=== PATIENT | male | born 1990 ===

== ENCOUNTER 2016-10-11 12:32 | Inpatient (IN) | payer OTHER ==
[2016-10-11] MEDS ORDERED: Sodium Chloride 0.9% 1,000 ML IV ONE (13:38)
[2016-10-11] MEDS ORDERED: Sodium Chloride 0.9% 250 ML IV ONE (13:56)
[2016-10-11 14:02] LABS: BASO % 0.2 % (0.0-2.0); EOS % 0.2 % (0.0-4.0); HEMATOCRIT 32.5 % (35.0-51.0); LYMPH # 0.8 K/uL (1.0-4.3); LYMPH % 5.4 % (20.0-40.0); MEAN CELL VOLUME 83.9 fL (80.0-94.0); MEAN CORPUSCULAR HEMOGLOBIN 26.8 pg (27.0-31.0); MEAN CORPUSCULAR HGB CONC 31.9 g/dL (33.0-37.0); MONO # 0.9 K/uL (0.0-0.8); MONO % 6.2 % (0.0-10.0); PLATELET COUNT 270 K/uL (130-400); RED CELL DISTRIBUTION WIDTH 15.1 % (11.5-14.5); WHITE BLOOD COUNT 13.9 K/uL (4.8-10.8)
[2016-10-11 14:10] LABS: CHLORIDE 95 mmol/L (98-107); SODIUM 134 mmol/L (132-148)
[2016-10-11 14:11] LABS: INR 1.4; POTASSIUM 3.9 mmol/L (3.6-5.2)
[2016-10-11 14:12] LABS: GFR AFRICAN-AMERICAN > 60
[2016-10-11 14:13] LABS: ALB/GLOB RATIO 0.9 (1.0-2.1); ALKALINE PHOSPHATASE 115 U/L (38-126); ALT/SGPT 31 U/L (21-72); AST/SGOT 26 U/L (17-59); BILIRUBIN,TOTAL 0.7 mg/dL (0.2-1.3); BLOOD UREA NITROGEN 9 mg/dL (9-20); CARBON DIOXIDE 27 mmol/L (22-30); GLUCOSE,RANDOM 95 mg/dL (75-110); TOTAL PROTEIN 7.3 g/dL (6.3-8.3)
[2016-10-11 14:14] LABS: CALCIUM 8.6 mg/dl (8.6-10.4)
[2016-10-11 15:25] LABS: NEUTROPHIL 76 % (50-75); TOTAL CELLS COUNTED 100
[2016-10-11 15:34] LABS: RBC URINE 11 /hpf (0-3); URINE BILIRUBIN NEGATIVE (NEGATIVE); URINE BLOOD 1+ (NEGATIVE); URINE COLOR Yellow (YELLOW); URINE GLUCOSE (UA) NORMAL (Normal); URINE KETONE NEGATIVE (NEGATIVE); URINE LEUKOCYTE ESTERASE NEG Leu/uL (Negative); URINE PROTEIN 1+ mg/dL (NEGATIVE); WBC URINE 8 /hpf (0-5)
[2016-10-11] MEDS ORDERED: Iodixanol 320 MG/ML 100 ML BOTTLE IV ONE (16:18)
--- NOTE | 2016-10-11 17:20 | CT ---
PROCEDURE: CT Chest with contrast (Pulmonary Angiogram) HISTORY: LUQ pain, SOB, +DDimer, r/o PE COMPARISON: None available. TECHNIQUE: Contiguous helical/ transaxial sections were obtained of the chest in the pulmonary arterial phase of enhancement following intravenous injection of approximately 100 cc Visipaque 320. Coronal and sagittal reformatted images were created and reviewed. Intravenous contrast dose: Radiation dose: Total exam DLP = 430.19 mGy-cm. This CT exam was performed using one or more of the following dose reduction techniques: Automated exposure control, adjustment of the mA and/or kV according to patient size, and/or use of iterative reconstruction technique. FINDINGS: PULMONARY ARTERIES: Note that the examination is limited due to poor opacification of the pulmonary arteries. Streak artifact further degrades the exam. . No definitive filling defects seen within the pulmonary trunk, right and left main pulmonary arteries. The lobar an segmental branches exhibit a localized areas of diminished contrast enhancement likely due to aforementioned technical factors. However the possibility of small nonocclusive emboli cannot be excluded. . Poor opacifications/visualization of the subsegmental and distal branches. Pulmonary trunk measures approximately 3.1 cm. Rule out underlying pulmonary arterial hypertension. Small hiatal hernia. AORTA: . No evidence of aortic aneurysm. The ascending thoracic aorta measures approximately 2.74 cm. . Descending thoracic aorta measures approximately 2.5 cm. LUNGS: The there is a triangular-shaped opacity seen within the superior margin of the major fissure on the right side possibly representing small amount of loculated fluid. . Multiple varying sized rounded nodular opacities are seen scattered throughout the upper and lower lobes new. Findings are of uncertain etiology though of post infectious/inflammatory including septic emboli and some of the small opacities exhibit the central lucencies. A metastatic disease would be less likely in this age group but not completely excluded. In addition, there also appears to be mild atelectasis both posterior lower lung zones. . Question history of IVDA in this patient. ? Questionable tiny calcification along the pleural surface right lung base and or along the hepatic surface. Rule out on prior exposure to a granulomatous disease process. . PLEURAL SPACES: No pneuomothorax. HEART: Heart size upper limits of normal. . No significant pericardial effusion. LYMPH NODES: No significant adenopathy. BONES, CHEST WALL: Unremarkable. No fracture or destructive lesion OTHER FINDINGS: The spleen is enlarged and heterogeneous. The possibility of splenic infarcts and/or septic emboli within the splenic parenchyma cannot be excluded. IMPRESSION: Multiple rounded small to medium-sized nodular opacities scattered throughout the upper and lower lobes several of which now exhibits central lucency. Findings sound consistent with process ; rule out septic emboli. Is there history of IVDA in this patient? . . The possibility of metastatic disease would be less likely in this age group but not completely excluded. Small amount of fluid suspect small amount of fluid within the superior margin of the right major fissure. Evaluation for PE is quite limited due to poor opacification and streak and beam hardening artifact. The pulmonary trunk and right and left main are fairly well opacified however branches distal to the to the of distal branches of the right and left main pulmonary artery poorly delineated some of which exhibit areas of low attenuation possibly due to streak and beam hardening artifact however nonocclusive thrombi cannot be excluded. Marked splenomegaly which is heterogeneous in appearance. . The possibility of underlying infarct changes and or septic emboli a not excluded. Findings discussed with Dr. Moreland at approximately 5:05 p.m. with written down and read back verification
[2016-10-11] MEDS ORDERED: Cefepime IV 2 gm in Dextrose 2 GM/100 ML BAG IVPB STA (17:33)
--- NOTE | 2016-10-11 18:15 | C.PDOC ---
Time Seen by Provider: 10/11/16 13:31 Chief Complaint (Nursing): Shortness Of Breath History Per: Patient Onset/Duration Of Symptoms: Days (few) Current Symptoms Are (Timing): Still Present Severity: Moderate Associated Symptoms: Fever (subjective) Additional History Per: Prior Records Past Medical History Reviewed: Historical Data, Nursing Documentation, Vital Signs Vital Signs: Last Vital Signs Temp 100.9 F H 10/11/16 17:38 Pulse 117 H 10/11/16 17:38 Resp 16 10/11/16 17:38 BP 99/47 L 10/11/16 17:38 Pulse Ox 97 10/11/16 17:38 - Medical History PMH: No Chronic Diseases Surgical History: No Surg Hx Family History: States: Unknown Family Hx - Social History Hx Alcohol Use: No Hx Substance Use: Yes (IVDU Heroin) - Immunization History Hx Influenza Vaccination: No Review Of Systems Except As Marked, All Systems Reviewed And Found Negative. Constitutional: Positive for: Malaise Cardiovascular: Negative for: Chest Pain Respiratory: Positive for: Shortness of Breath. Negative for: Hemoptysis Gastrointestinal: Positive for: Abdominal Pain (LUQ). Negative for: Vomiting Genitourinary: Negative for: Dysuria, Hematuria Musculoskeletal: Positive for: Other (Right upper thigh pain). Negative for: Neck Pain, Back Pain Skin: Negative for: Rash Neurological: Negative for: Weakness, Numbness, Seizures, Altered Mental Status , Headache Physical Exam - Physical Exam Appears: Non-toxic, No Acute Distress Skin: Normal Color, Warm, Dry, No Rash Head: Atraumatic, Normacephalic Eye(s): bilateral: PERRL, EOMI Neck: Normal ROM, Supple Cardiovascular: Rhythm Regular Respiratory: Normal Breath Sounds, No Accessory Muscle Use Gastrointestinal/Abdominal: Soft, Tenderness (LUQ) Back: No CVA Tenderness Male Genital: No Testicular Tenderness, No Testicular Swelling, No Scrotal Swelling Extremity: Normal ROM, Tenderness (mild right upper thight/groin), No Pedal Edema, No Calf Tenderness Extremity: Bilateral: Normal Color And Temperature Neurological/Psych: Oriented x3, Normal Cognition, Normal Motor, Normal Sensation ED Course And Treatment - Laboratory Results Result Diagrams: 10/11/16 13:50 10/11/16 13:50 Lab Interpretation: Abnormal Interpretation Of Abnormal: Bandemia O2 Sat by Pulse Oximetry: 97 Pulse Ox Interpretation: Normal - CT Scan/US CTA of chest Other Rad Studies (CT/US): Read By Radiologist, Radiology Report Reviewed CT/US Interpretation: IMPRESSION: Multiple rounded small to medium-sized nodular opacities scattered throughout the upper and lower lobes several of which now exhibits central lucency. Findings sound consistent with process ; rule out septic emboli. Is there history of IVDA in this patient? . . The possibility of metastatic disease would be less likely in this age group but not completely excluded. Small amount of fluid suspect small amount of fluid within the superior margin of the right major fissure. Evaluation for PE is quite limited due to poor opacification and streak and beam hardening artifact. The pulmonary trunk and right and left main are fairly well opacified however branches distal to the to the of distal branches of the right and left main pulmonary artery poorly delineated some of which exhibit areas of low attenuation possibly due to streak and beam hardening artifact however nonocclusive thrombi cannot be excluded. Marked splenomegaly which is heterogeneous in appearance. . The possibility of underlying infarct changes and or septic emboli a not excluded. - Physician Consult Information Physician Contacted: Chema Yañez (ICU) Outcome Of Conversation: He states pt can be safely admitted to medical floor. He also states anticoagulation is not necessary for septic emboli. Progress - Interventions Interventions:: Observation, Intravenous fluid - Medications Administered Intravenous: Other (Abx) - Data Reviewed Data Reviewed: Lab, Diagnostic imaging, Old records - Patient Status Patient status: Partially improved - Continuity of Care Discussed patient case with:: Patient, Family-HIPPA compliant, ED Nurse, On- call PMD-pt unassigned Discussed pt. case with work and family life consultant/specialty: Pulmonary/Crit. Care - Patient Plan Patient Plan: Admission, Telemetry Disposition Discussed With : Roldan Giraldo Comment: He accepted pt on hospitalist service. Doctor Will See Patient In The: Hospital Counseled Patient/Family Regarding: Studies Performed, Diagnosis - Disposition Disposition: HOSPITALIZED Disposition Time: 18:18 Condition: FAIR - Clinical Impression Clinical Impression: Septic embolism
[2016-10-11] MEDS ORDERED: Piperacillin/Tazobact 3.375 GM in Sodium Chloride 100 ML IVPB SCH (19:45)
--- NOTE | 2016-10-11 19:53 | CP.PCM.HP ---
<Salinas Alva - Last Filed: 10/11/16 20:06> History of Present Illness - History of Present Illness History of Present Illness: CC: "Stomach pain, fevers, diarrhea, shortness of breath, night sweats" HPI: Pt is a 26 year old male with a PMHx of IV heroin abuse who presents to the ED with complaints of on and off fevers, mid epigastric abdominal pain, diarrhea 3x/day, night sweats, and chills for a duration of one week. Pt reports that he last used heroin 3 days ago via injection. He reports that prior to using 3 days ago, he has not used heroin for 2 months. He reports that he is in an IOP program. Pt describes his abdominal pain as constant and sharp. He reports that the all the symptoms began suddenly. Pt denies nausea, vomiting , chest pain. PMHx: IV heroin abuse Home medications: none reported Allergies: NKDA Surgical Hx: none Social Hx: 2 cigarettes/day, denies alcohol use, 2 year hx of IV heroin abuse Family Hx: Cancer (aunt) Present on Admission - Present on Admission Any Indicators Present on Admission: No Review of Systems - Constitutional Constitutional: Chills, Fever - EENT Eyes: absent: Blurred Vision, Change in Vision Ears: absent: Dizziness Nose/Mouth/Throat: absent: Epistaxis, Nasal Congestion - Cardiovascular Cardiovascular: Dyspnea. absent: Chest Pain, Edema - Respiratory Respiratory: Dyspnea. absent: Cough - Gastrointestinal Gastrointestinal: Abdominal Pain, Diarrhea - Genitourinary Genitourinary: absent: Change in Urinary Stream, Difficulty Urinating - Musculoskeletal Musculoskeletal: absent: Atrophy, Back Pain - Neurological Neurological: Numbness. absent: Dizziness, Headaches Additional comments: Numbness on anterior aspect of left monahan - Psychiatric Psychiatric: Anxiety - Endocrine Endocrine: Excessive Sweating. absent: Palpitations Past Patient History - Infectious Disease Hx of Infectious Diseases: None - Past Social History Smoking Status: Light Smoker < 10 Cigarettes Daily - PSYCHIATRIC Hx Substance Use: Yes (IVDU Heroin) Meds Allergies/Adverse Reactions: Allergies Allergy/AdvReac Type Severity Reaction Status Date / Time No Known Allergies Allergy Verified 10/11/16 12:39 Physical Exam - Constitutional Appears: No Acute Distress - Head Exam Head Exam: ATRAUMATIC, NORMOCEPHALIC - Eye Exam Eye Exam: EOMI, PERRL - ENT Exam ENT Exam: Mucous Membranes Moist - Neck Exam Neck exam: Positive for: Full Rom - Respiratory Exam Respiratory Exam: Clear to Auscultation Bilateral. absent: Rales, Rhonchi, Wheezes - Cardiovascular Exam Cardiovascular Exam: +S1, +S2, Systolic Murmur - GI/Abdominal Exam GI & Abdominal Exam: Normal Bowel Sounds, Soft, Tenderness. absent: Distended, Rigid - Extremities Exam Extremities exam: Positive for: full ROM. Negative for: pedal edema - Neurological Exam Neurological exam: Alert, Oriented x3 - Psychiatric Exam Psychiatric exam: Normal Affect, Normal Mood - Skin Skin Exam: Normal Color, Warm Results - Vital Signs Recent Vital Signs: Last Vital Signs Temp 100.9 F H 10/11/16 17:38 Pulse 96 H 10/11/16 19:06 Resp 16 10/11/16 19:06 BP 123/77 10/11/16 19:06 Pulse Ox 97 10/11/16 18:20 - Labs Result Diagrams: 10/11/16 13:50 10/11/16 13:50 Assessment & Plan - Assessment and Plan (Free Text) Assessment: Sepsis: Tmax- 100.9 WBC - 13.9 HR - 117 Blood cultures, urine cultures pending Vancomycin 1 gm IV qd Zosyn 3.375 gm IV q6h ID, Dr. Diaz, consulted. Help appreciated. Tylenol 650 mgpo q6h prn for fever NS IVF 100 cc/hr Septic Emboli secondary to IV drug abuse: D-dimer - 656, elevated CT Chest - triangular shaped opacity on right major fissure suggestive of loculated fluid; multiple nodular opacities throughout upper and lower lobes with central lucency; possible septic emboli; atelectasis, limited study to determine PE (please see full report) Serial cardiac enzymes pending EKG pending Echocardiogram pending Lower extremity venous dopplers pending Hx of IV Drug Abuse: Psych, Dr. Peres, consulted. Help appreciated. Prophylactic Measures: GI: Protonix 40 mg po qd DVT: Lovenox 40 mg sc qd <Gilberto Dubois - Last Filed: 11/15/16 16:29> Results - Vital Signs Recent Vital Signs: Last Vital Signs Temp 97.8 F 10/16/16 07:10 Pulse 67 10/16/16 07:10 Resp 17 10/16/16 07:10 BP 102/57 L 10/16/16 07:10 Pulse Ox 96 10/16/16 07:10 - Labs Result Diagrams: 10/16/16 07:09 10/16/16 07:09 Attending/Attestation - Attestation I have personally seen and examined this patient.: Yes I have fully participated in the care of the patient.: Yes I have reviewed all pertinent clinical information: Yes Notes (Text): Patient Seen and examined with the resident. Agree with the resident's evaluation, assessment and plan. Sepsis: Tmax- 100.9 WBC - 13.9 HR - 117 Blood cultures, urine cultures pending Vancomycin 1 gm IV qd Zosyn 3.375 gm IV q6h ID, Dr. Diaz, consulted. Help appreciated. Tylenol 650 mgpo q6h prn for fever NS IVF 100 cc/hr Septic Emboli secondary to IV drug abuse: D-dimer - 656, elevated CT Chest - triangular shaped opacity on right major fissure suggestive of loculated fluid; multiple nodular opacities throughout upper and lower lobes with central lucency; possible septic emboli; atelectasis, limited study to determine PE (please see full report) Serial cardiac enzymes pending EKG pending Echocardiogram pending Lower extremity venous dopplers pending
[2016-10-11] MEDS: Sodium Chloride 0.9% 1,000 ML IV SCH (19:58)
[2016-10-11] MEDS: Piperacill/Tazo 3.375gm in Dex 3.375 GM/50 ML BAG IVPB SCH (20:23)
[2016-10-12] MEDS: Piperacill/Tazo 3.375gm in Dex 3.375 GM/50 ML BAG IVPB SCH ×4 (01:28→20:17)
[2016-10-12] MEDS: Sodium Chloride 0.9% 1,000 ML IV SCH ×2 (08:07→16:15)
[2016-10-12] MEDS: Enoxaparin 40 mg Syringe SC SCH (09:11)
[2016-10-12] MEDS: Pantoprazole 40 mg EC Tab PO SCH (09:12)
--- NOTE | 2016-10-12 09:54 | VASCLAB ---
PROCEDURE: Right Lower Extremity Venous Duplex Exam. HISTORY: Upper thigh pain, r/o DVT PRIORS: None. TECHNIQUE: Right common femoral, femoral, popliteal and posterior tibial, peroneal and great saphenous veins were evaluated. Flow was assessed with color Doppler, compressibility, assessment of phasic flow and augmentation response. Report prepared by CORWIN Moreno, RVT FINDINGS: RIGHT: 1. Common Femoral Vein: 1.1. Compressibility - Fully compressible: Thrombus - None: Flow - Phasic: Augmentation -Normal: Reflux - None. 2. Femoral Vein: 2.1. Compressibility - Fully compressible: Thrombus - None: Flow - Phasic: Augmentation -Normal: Reflux - None. 3. Popliteal Vein: 3.1. Compressibility - Fully compressible: Thrombus - None: Flow - Phasic: Augmentation -Normal: Reflux - None. 4. Posterior Tibial Vein: 4.1. Compressibility - Fully compressible: Thrombus - None: Flow - Phasic: Augmentation -Normal: Reflux - None. 5. Peroneal Vein: 5.1. Compressibility - Fully compressible: Thrombus - None: Flow - Phasic: Augmentation -Normal: Reflux - None. 6. Great Saphenous Vein: 6.1. Compressibility - Fully compressible: Thrombus -None: Flow - Phasic: Augmentation - Normal: Reflux - None. OTHER FINDINGS: IMPRESSION: No evidence of deep or superficial vein thrombosis of the right lower extremity with excellent venous flow. Normal valve function noted of the right side. Normal venous flow noted in the left common femoral vein.
--- NOTE | 2016-10-12 11:16 | PCM.PSYCH ---
Initial Psychiatric Evaluation - Initial Psychiatric Evaluation Type of Admission: Voluntary Legal Status: Capacity Chief Complaint (in patient's own words): "I'm in pain" History of Present Illness and Precipitating Events: Patient is a 26 year old male. He is single and has two children ages 5 , 2. He lives with his cousin and works as a helper on a truck, loading and unloading. Psychiatry was consulted because of IV drug use. Patient came to the ER because he was having abdominal pain, diarrhea, fever, and chills. His last use was 2 bags of heroin yesterday.He has been using heroin for 2 years, 10-15 bags a day intravenously. Patient was in an IOP program in January at [facility], with methadone maintenance therapy (120mg) but then relapsed in April. Patient denies cocaine, marijuana or any other drug use. He denies alcohol and tobacco use. Patient reports that he is not anxious or depressed and denies any psychiatric hospitalizations. Patient is not hearing voices or having any visual hallucinations. He does not feel paranoid. He denies S/I or H/I. Patient is currently complaining of sweats, restlessness, back pain, abdominal pain and body aches. PMH: denies PsychHx: denies Allergies: denies Current Medications: Active Medications Generic Name Dose Route Start Last Admin Trade Name Kindra PRN Reason Stop Dose Admin Acetaminophen 650 mg 10/12/16 03:16 10/12/16 09:11 Tylenol 325mg Tab PO 650 mg Q6 PRN Administration Pain, Mild (1-3) Enoxaparin Sodium 40 mg 10/12/16 10:00 10/12/16 09:11 Lovenox SC 40 mg DAILY JUANI Administration Sodium Chloride 1,000 mls @ 125 mls/hr 10/11/16 19:45 10/12/16 08:07 Sodium Chloride 0.9% IV 125 mls/hr .Q8H JUANI Administration Piperacillin Sod/Tazobactam Sod 3.375 gm in 50 mls @ 100 mls/hr 10/11/16 20: 00 10/12/16 08:07 Zosyn 3.375 Gm Iv Premix IVPB 100 mls/hr Q6H JUANI Administration Vancomycin HCl 1 gm/ Sodium 250 mls @ 166.7 mls/hr 10/12/16 10:30 Chloride IVPB Q12H JUANI Pantoprazole Sodium 40 mg 10/12/16 10:00 10/12/16 09:12 Protonix Ec Tab PO 40 mg DAILY JUANI Administration Past Psychiatric History - Past Psychiatric History Previous Treatment History: Inpatient Pertinent Medical Hx (Current Medical&Sleep Prob, Allergies): Allergies Allergy/AdvReac Type Severity Reaction Status Date / Time No Known Allergies Allergy Verified 10/11/16 12:39 No Known Home Med 10/11/16 Review of Systems - Review of Systems All systems: reviewed and no additional remarkable complaints except - Psychiatric Psychiatric: Anxiety, Irritability. absent: Auditory Hallucinations, Suicidal Ideation, Visual Hallucinations Mental Status Examination - Personal Presentation Personal Presentation: Looks stated age - Affect Affect: Constricted - Motor Activity Motor Activity: Psychomotor Agitation - Reliability in Providing Information Reliability in Providing Information: Fair - Speech Speech: Organized - Mood Mood: Anxious - Formal Thought Process Formal Thought Process: No Impairment - Obsessions/Compulsions Obsessions: No Compulsions: No - Cognitive Functions Orientation: Person, Place, Situation, Time Sensorium: Alert Attention/Concentration: Attentive Abstract Thinking: Jackson Estimate of Intelligence: Below average Judgement: Imparied, as evidence by: Poor judgement, Intact, as evidence by: Insight regarding need for hospitalization - Risk Risk: Withdrawal, Diminished functioning - Strength & Assets Inventory Strength & Assets Inventory: Family support DSM 5 DX - DSM 5 DSM 5 Diagnosis: Opiate use disorder severe Opiate withdrawal - Recommended/Plan of Treatment Treatment Recommendations and Plan of Treatment: Opioid use disorder severe CBT Psychoeducation Supportive therapy, individual therapy Use [place] for abstinence Opioid withdrawal CBT Psychoeducation Supportive therapy, individual therapy Clonidine when necessary Methadone taper - Smoking Cessation Smoking Cessation Initiated: No
[2016-10-12 11:55] LABS: BASO % 0.4 % (0.0-2.0); EOS % 0.3 % (0.0-4.0); HEMATOCRIT 27.5 % (35.0-51.0); LYMPH # 0.9 K/uL (1.0-4.3); LYMPH % 8.1 % (20.0-40.0); MEAN CELL VOLUME 83.1 fL (80.0-94.0); MEAN CORPUSCULAR HEMOGLOBIN 27.2 pg (27.0-31.0); MEAN CORPUSCULAR HGB CONC 32.7 g/dL (33.0-37.0); MEAN PLATELET VOLUME 8.4 fL (7.2-11.7); MONO # 0.8 K/uL (0.0-0.8); MONO % 7.9 % (0.0-10.0); PLATELET COUNT 233 K/uL (130-400); WHITE BLOOD COUNT 10.7 K/uL (4.8-10.8)
[2016-10-12 12:08] LABS: CHLORIDE 101 mmol/L (98-107); POTASSIUM 3.4 mmol/L (3.6-5.2); SODIUM 134 mmol/L (132-148)
[2016-10-12 12:10] LABS: BILIRUBIN,TOTAL 0.6 mg/dL (0.2-1.3); CARBON DIOXIDE 25 mmol/L (22-30); GFR AFRICAN-AMERICAN > 60
[2016-10-12 12:11] LABS: ALKALINE PHOSPHATASE 98 U/L (38-126); ALT/SGPT 26 U/L (21-72); AST/SGOT 27 U/L (17-59); BLOOD UREA NITROGEN 5 mg/dL (9-20); CALCIUM 7.9 mg/dl (8.6-10.4); GLUCOSE,RANDOM 104 mg/dL (75-110); MAGNESIUM 1.9 mg/dL (1.6-2.3); PHOSPHOROUS 2.7 mg/dL (2.5-4.5); TOTAL PROTEIN 6.1 g/dL (6.3-8.3)
[2016-10-12 12:12] LABS: ALB/GLOB RATIO 0.8 (1.0-2.1)
--- NOTE | 2016-10-12 12:34 | RAD ---
HISTORY: shortness of breath COMPARISON: No prior. FINDINGS: LUNGS: Mild venous congestion with patchy bibasilar airspace opacities. PLEURA: No significant pleural effusion identified, no pneumothorax apparent. CARDIOVASCULAR: Normal. OSSEOUS STRUCTURES: No significant abnormalities. VISUALIZED UPPER ABDOMEN: Normal. OTHER FINDINGS: None. IMPRESSION: Mild venous congestion with patchy bibasilar airspace opacities.
[2016-10-12 12:55] LABS: NEUTROPHIL 80 % (50-75); TOTAL CELLS COUNTED 100
[2016-10-12] MEDS ORDERED: Aluminum Hydroxide/Magnesium Hydroxide Susp (30 mL) PO PRN (13:13)
--- NOTE | 2016-10-12 15:03 | CP.PCM.PN ---
<Woodrow Brooks - Last Filed: 10/12/16 15:07> Subjective - Date & Time of Evaluation Date of Evaluation: 10/12/16 Time of Evaluation: 15:00 - Subjective Subjective: Med progress note. Attending: Dr. Giraldo Pt seen and examined at bedside. No acute distress, but pt feels bad and has pain and shaking. Concern for endocarditis, will start vanco and gentamicin. F/ u genta trough. Objective - Vital Signs/Intake and Output Vital Signs (last 24 hours): Temp Pulse Resp BP Pulse Ox 98.3 F 73 20 131/79 97 10/11/16 23:45 10/11/16 23:45 10/11/16 23:45 10/11/16 23:45 10/11/16 23:45 Intake and Output: 10/12/16 10/12/16 06:59 18:59 Output Total 200 Balance -200 - Medications Medications: Current Medications Acetaminophen (Tylenol 325mg Tab) 650 mg PO Q6 PRN PRN Reason: Pain, Mild (1-3) Last Admin: 10/12/16 09:11 Dose: 650 mg Al Hydrox/Mg Hydrox/Simethicone (Maalox 30 Ml) 30 ml PO TID PRN PRN Reason: Indigestion / Heartburn Clonidine HCl (Catapres) 0.1 mg PO Q8 PRN PRN Reason: COWS Score More or Equal to 5 Enoxaparin Sodium (Lovenox) 40 mg SC DAILY [facility] Last Admin: 10/12/16 09:11 Dose: 40 mg Sodium Chloride (Sodium Chloride 0.9%) 1,000 mls @ 125 mls/hr IV .Q8H [facility] Last Admin: 10/12/16 08:07 Dose: 125 mls/hr Piperacillin Sod/Tazobactam Sod (Zosyn 3.375 Gm Iv Premix) 3.375 gm in 50 mls @ 100 mls/hr IVPB Q6H [facility] Last Admin: 10/12/16 08:07 Dose: 100 mls/hr Vancomycin HCl 1 gm/ Sodium (Chloride) 250 mls @ 166.7 mls/hr IVPB Q12H [facility] Last Admin: 10/12/16 11:22 Dose: 166.7 mls/hr Gentamicin Sulfate 80 mg/ (Sodium Chloride) 102 mls @ 100 mls/hr IVPB Q8H [facility] Loperamide HCl (Imodium) 2 mg PO Q8 PRN PRN Reason: Diarrhea Methadone HCl (Methadone) 0 mg PO DAILY [facility] PRN Reason: Taper Stop: 10/16/16 09:59 Ondansetron HCl (Zofran Tab) 4 mg PO Q8 PRN PRN Reason: Nausea/Vomiting Pantoprazole Sodium (Protonix Ec Tab) 40 mg PO DAILY [facility] Last Admin: 10/12/16 09:12 Dose: 40 mg Pseudoephedrine HCl (Sudafed Tab) 60 mg PO QID PRN PRN Reason: Nasal/Sinus Congestion - Labs Labs: 10/12/16 04:00 10/12/16 04:00 PT 15.4 SECONDS (9.7-12.2) H 10/11/16 13:50 INR 1.4 10/11/16 13:50 APTT 31 SECONDS (21-34) 10/11/16 13:50 - Constitutional Appears: Non-toxic, Unkempt - Head Exam Head Exam: ATRAUMATIC, NORMAL INSPECTION, NORMOCEPHALIC - Eye Exam Eye Exam: EOMI - ENT Exam ENT Exam: Mucous Membranes Moist - Neck Exam Neck Exam: Full ROM, Normal Inspection - Respiratory Exam Respiratory Exam: NORMAL BREATHING PATTERN - Cardiovascular Exam Cardiovascular Exam: +S1, +S2, Murmur - GI/Abdominal Exam GI & Abdominal Exam: Tenderness, Normal Bowel Sounds. absent: Distended - Extremities Exam Extremities Exam: Full ROM, Normal Inspection - Neurological Exam Neurological Exam: Alert, Awake, Oriented x3 - Psychiatric Exam Psychiatric exam: Agitated - Skin Skin Exam: Dry, Intact, Normal Color, Warm Assessment and Plan - Assessment and Plan (Free Text) Assessment: This is a 26 yo male with past medical hx of heroin abuse presenting with fevers , shaking, chills, abdominal pain Sepsis: Tmax- 100.9 WBC - 13.9>> 10.7 HR - 117 Blood cultures, urine cultures pending>>> urine culture negative Vancomycin 1 gm IV q12 day 2 Zosyn 3.375 gm IV q6h day 2 ID, Dr. Diaz, consulted. Help appreciated. Tylenol 650 mgpo q6h prn for fever NS IVF 100 cc/hr add gentamicin, will follow up genta trough Septic Emboli secondary to IV drug abuse: D-dimer - 656, elevated CT Chest - triangular shaped opacity on right major fissure suggestive of loculated fluid; multiple nodular opacities throughout upper and lower lobes with central lucency; possible septic emboli; atelectasis, limited study to determine PE (please see full report) Serial cardiac enzymes negative EKG pending Echocardiogram pending Lower extremity venous dopplers negative ID consult. Dr. Diaz. recs appreciated Hx of IV Drug Abuse: Psych, Dr. Peres, consulted. Help appreciated. Prophylactic Measures: GI: Protonix 40 mg po qd DVT: Lovenox 40 mg sc qd discussed with Dr. Giraldo <Roldan Giraldo - Last Filed: 10/12/16 17:35> Objective - Vital Signs/Intake and Output Vital Signs (last 24 hours): Temp Pulse Resp BP Pulse Ox 97.9 F 53 L 20 127/70 96 10/12/16 16:41 10/12/16 16:41 10/12/16 16:41 10/12/16 16:41 10/12/16 16:41 Intake and Output: 10/12/16 10/12/16 06:59 18:59 Output Total 200 Balance -200 - Medications Medications: Current Medications Acetaminophen (Tylenol 325mg Tab) 650 mg PO Q6 PRN PRN Reason: Pain, Mild (1-3) Last Admin: 10/12/16 09:11 Dose: 650 mg Al Hydrox/Mg Hydrox/Simethicone (Maalox 30 Ml) 30 ml PO TID PRN PRN Reason: Indigestion / Heartburn Clonidine HCl (Catapres) 0.1 mg PO Q8 PRN PRN Reason: COWS Score More or Equal to 5 Enoxaparin Sodium (Lovenox) 40 mg SC DAILY [facility] Last Admin: 10/12/16 09:11 Dose: 40 mg Sodium Chloride (Sodium Chloride 0.9%) 1,000 mls @ 125 mls/hr IV .Q8H [facility] Last Admin: 10/12/16 16:15 Dose: Not Given Piperacillin Sod/Tazobactam Sod (Zosyn 3.375 Gm Iv Premix) 3.375 gm in 50 mls @ 100 mls/hr IVPB Q6H [facility] Last Admin: 10/12/16 15:52 Dose: 100 mls/hr Vancomycin HCl 1 gm/ Sodium (Chloride) 250 mls @ 166.7 mls/hr IVPB Q12H [facility] Last Admin: 10/12/16 11:22 Dose: 166.7 mls/hr Gentamicin Sulfate 80 mg/ (Sodium Chloride) 102 mls @ 100 mls/hr IVPB Q8H [facility] Loperamide HCl (Imodium) 2 mg PO Q8 PRN PRN Reason: Diarrhea Methadone HCl (Methadone) 0 mg PO DAILY [facility] PRN Reason: Taper Stop: 10/16/16 09:59 Ondansetron HCl (Zofran Tab) 4 mg PO Q8 PRN PRN Reason: Nausea/Vomiting Pantoprazole Sodium (Protonix Ec Tab) 40 mg PO DAILY [facility] Last Admin: 10/12/16 09:12 Dose: 40 mg Pseudoephedrine HCl (Sudafed Tab) 60 mg PO QID PRN PRN Reason: Nasal/Sinus Congestion - Labs Labs: 10/12/16 04:00 10/12/16 04:00 PT 15.4 SECONDS (9.7-12.2) H 10/11/16 13:50 INR 1.4 10/11/16 13:50 APTT 31 SECONDS (21-34) 10/11/16 13:50 Attending/Attestation - Attestation I have personally seen and examined this patient.: Yes I have fully participated in the care of the patient.: Yes I have reviewed all pertinent clinical information, including history, physical exam and plan: Yes Notes (Text): 10/12/16 17:32 Medical Attending: Patient was seen and examined by me with family present. Reviewed note by resident and saw patient with resident and agree with the above. The patient was ok with the family present. As of this morning pending the echo results. Also need to check for HIV, Hepatits, RPR etc as well. Continue IV abx, mukund probably needs JYA but pending the 2 decho at this time. This morning he reported a lot of withdrawl symptoms from the IV heroine use. He continues to deny cocaine use. thank you Roldan Giraldo
--- NOTE | 2016-10-12 17:02 | CARD ---
APPROVED REPORT EXAM: Two-dimensional and M-mode echocardiogram with Doppler and color Doppler. Other Information Quality : GoodRhythm : NSR INDICATION Dyspnea Congestive Heart Failure COPD r/o endocarditis, septic pulmonary emboli M-Mode DIMENSIONS RVDd1.46 (2.1-3.2cm)Left Atrium (MM)4.07 (2.5-4.0cm) IVSd0.81 (0.7-1.1cm)Aortic Root2.86 (2.2-3.7cm) LVDd5.60 (4.0-5.6cm)Aortic Cusp Exc.2.11 (1.5-2.0cm) PWd1.63 (0.7-1.1cm)FS (%) 40 % LVDs3.38 (2.0-3.8cm)LVEF (%)69 (>50%) Aortic Valve AoV Peak Pvdhxoeq562.5cm/Benjamin Peak GR.11mmHg Mitral Valve MV E Wqwmwcsi325.8cm/sMV A Tzjakqec92.5cm/sE/A ratio1.9 TDI E/Lateral E'0.0E/Medial E'0.0 Tricuspid Valve TR Peak Jpkrcxhg204fo/sTR Peak Gr.[id number] LEFT VENTRICLE The left ventricle is normal size. There is normal left ventricular wall thickness. The left ventricular function is normal. The left ventricular ejection fraction is within the normal range. About 60% No regional wall motion abnormalities noted. The left ventricular diastolic function is normal. No left ventricle thrombus noted on this study. There is no ventricular septal defect visualized. There is no left ventricular aneurysm. There is no mass noted in the left ventricle. RIGHT VENTRICLE The right ventricle is normal size. There is normal right ventricular wall thickness. The right ventricular systolic function is normal. ATRIA The left atrium size is normal. The right atrium size is normal. The interatrial septum is intact with no evidence for an atrial septal defect. AORTIC VALVE The aortic valve is normal in structure and function. No aortic regurgitation is present. There is no aortic valvular stenosis. There is no aortic valvular vegetation. MITRAL VALVE The mitral valve is normal in structure and function. There is no evidence of mitral valve prolapse. There is no mitral valve stenosis. There is no mitral valve regurgitation noted. TRICUSPID VALVE The tricuspid valve is normal in structure and function. There is mild tricuspid valve regurgitation noted. There is no tricuspid valve prolapse or vegetation. There is no tricuspid valve stenosis. PULMONIC VALVE The pulmonary valve is normal in structure and function. There is no pulmonic valvular regurgitation. There is no pulmonic valvular stenosis. GREAT VESSELS The aortic root is normal in size. The ascending aorta is normal in size. The pulmonary artery is normal. The IVC is normal in size and collapses >50% with inspiration. PERICARDIAL EFFUSION The pericardium appears normal. There is no pleural effusion. <Conclusion> normal study
[2016-10-12] MEDS ORDERED: Potassium Chloride 20 mEq/15 ml LIQ UD PO ONE (22:27)
[2016-10-13] MEDS: Piperacill/Tazo 3.375gm in Dex 3.375 GM/50 ML BAG IVPB SCH ×4 (02:25→20:51)
[2016-10-13] MEDS: Sodium Chloride 0.9% 1,000 ML IV SCH ×5 (02:26→20:00)
[2016-10-13 07:50] LABS: BASO % 0.3 % (0.0-2.0); EOS # 0.1 K/uL (0.0-0.7); EOS % 1.5 % (0.0-4.0); HEMATOCRIT 29.5 % (35.0-51.0); LYMPH # 1.1 K/uL (1.0-4.3); MEAN CELL VOLUME 83.6 fL (80.0-94.0); MEAN CORPUSCULAR HEMOGLOBIN 27.1 pg (27.0-31.0); MEAN CORPUSCULAR HGB CONC 32.4 g/dL (33.0-37.0); MEAN PLATELET VOLUME 8.2 fL (7.2-11.7); MONO # 0.9 K/uL (0.0-0.8); MONO % 9.6 % (0.0-10.0); RED CELL DISTRIBUTION WIDTH 15.1 % (11.5-14.5); WHITE BLOOD COUNT 9.2 K/uL (4.8-10.8)
[2016-10-13 08:18] LABS: CHLORIDE 104 mmol/L (98-107); POTASSIUM 3.9 mmol/L (3.6-5.2); SODIUM 138 mmol/L (132-148)
[2016-10-13 08:20] LABS: ALB/GLOB RATIO 0.9 (1.0-2.1); AST/SGOT 25 U/L (17-59); BILIRUBIN,TOTAL 0.5 mg/dL (0.2-1.3); CARBON DIOXIDE 26 mmol/L (22-30); GFR AFRICAN-AMERICAN > 60
[2016-10-13 08:21] LABS: ALKALINE PHOSPHATASE 88 U/L (38-126); ALT/SGPT 25 U/L (21-72); BLOOD UREA NITROGEN 7 mg/dL (9-20); CALCIUM 8.1 mg/dl (8.6-10.4); GLUCOSE,RANDOM 87 mg/dL (75-110); MAGNESIUM 2.1 mg/dL (1.6-2.3); PHOSPHOROUS 4.3 mg/dL (2.5-4.5)
[2016-10-13] MEDS: Enoxaparin 40 mg Syringe SC SCH (09:07)
[2016-10-13] MEDS: Pantoprazole 40 mg EC Tab PO SCH (09:07)
--- NOTE | 2016-10-13 11:58 | CP.PCM.PN ---
<Woodrow Brooks - Last Filed: 10/13/16 11:58> Subjective - Date & Time of Evaluation Date of Evaluation: 10/13/16 Time of Evaluation: 11:55 - Subjective Subjective: Med progress note. Attending: Dr. Giraldo Pt seen and examined at bedside. No acute distress. No events overnight. pt has been afebrile. Both blood cultures positive for staph, echo shows no vegetations. Will f/u with ID. Objective - Vital Signs/Intake and Output Vital Signs (last 24 hours): Temp Pulse Resp BP Pulse Ox 97.7 F 71 18 120/70 96 10/13/16 07:15 10/13/16 08:42 10/13/16 07:15 10/13/16 07:15 10/13/16 07:15 Intake and Output: 10/13/16 10/13/16 06:59 18:59 Intake Total 1240 Output Total 700 Balance 540 - Medications Medications: Current Medications Acetaminophen (Tylenol 325mg Tab) 650 mg PO Q6 PRN PRN Reason: Pain, Mild (1-3) Last Admin: 10/13/16 11:10 Dose: 650 mg Al Hydrox/Mg Hydrox/Simethicone (Maalox 30 Ml) 30 ml PO TID PRN PRN Reason: Indigestion / Heartburn Clonidine HCl (Catapres) 0.1 mg PO Q8 PRN PRN Reason: COWS Score More or Equal to 5 Enoxaparin Sodium (Lovenox) 40 mg SC DAILY [facility] Last Admin: 10/13/16 09:07 Dose: 40 mg Sodium Chloride (Sodium Chloride 0.9%) 1,000 mls @ 125 mls/hr IV .Q8H [facility] Last Admin: 10/13/16 03:45 Dose: Not Given Piperacillin Sod/Tazobactam Sod (Zosyn 3.375 Gm Iv Premix) 3.375 gm in 50 mls @ 100 mls/hr IVPB Q6H [facility] Last Admin: 10/13/16 08:10 Dose: 100 mls/hr Vancomycin HCl 1 gm/ Sodium (Chloride) 250 mls @ 166.7 mls/hr IVPB Q12H [facility] Last Admin: 10/13/16 11:46 Dose: 166.7 mls/hr Gentamicin Sulfate 80 mg/ (Sodium Chloride) 102 mls @ 100 mls/hr IVPB Q8H [facility] Last Admin: 10/13/16 06:03 Dose: 100 mls/hr Loperamide HCl (Imodium) 2 mg PO Q8 PRN PRN Reason: Diarrhea Methadone HCl (Methadone) 20 mg PO DAILY [facility] PRN Reason: Taper Stop: 10/16/16 09:59 Last Admin: 10/13/16 09:07 Dose: 20 mg Ondansetron HCl (Zofran Tab) 4 mg PO Q8 PRN PRN Reason: Nausea/Vomiting Last Admin: 10/13/16 00:13 Dose: 4 mg Pantoprazole Sodium (Protonix Ec Tab) 40 mg PO DAILY [facility] Last Admin: 10/13/16 09:07 Dose: 40 mg Pseudoephedrine HCl (Sudafed Tab) 60 mg PO QID PRN PRN Reason: Nasal/Sinus Congestion Trazodone HCl (Desyrel) 50 mg PO HS [facility] - Labs Labs: 10/13/16 07:32 10/13/16 07:32 PT 15.4 SECONDS (9.7-12.2) H 10/11/16 13:50 INR 1.4 10/11/16 13:50 APTT 31 SECONDS (21-34) 10/11/16 13:50 - Constitutional Appears: Non-toxic, No Acute Distress - Eye Exam Eye Exam: EOMI - ENT Exam ENT Exam: Mucous Membranes Moist - Neck Exam Neck Exam: Full ROM, Normal Inspection - Respiratory Exam Respiratory Exam: NORMAL BREATHING PATTERN. absent: Respiratory Distress - Cardiovascular Exam Cardiovascular Exam: +S1, +S2 - GI/Abdominal Exam GI & Abdominal Exam: Tenderness. absent: Distended, Guarding - Extremities Exam Extremities Exam: Full ROM, Normal Inspection - Back Exam Back Exam: NORMAL INSPECTION - Neurological Exam Neurological Exam: Alert, Awake, Oriented x3 - Psychiatric Exam Psychiatric exam: Normal Affect, Normal Mood - Skin Skin Exam: Dry, Intact, Normal Color, Warm Assessment and Plan - Assessment and Plan (Free Text) Assessment: This is a 26 yo male with past medical hx of heroin abuse presenting with fevers , shaking, chills, abdominal pain Sepsis: Tmax- 100.9 WBC - 13.9>> 10.7>> 9.2 HR controlled Blood cultures, urine cultures pending>>> urine culture negative Vancomycin 1 gm IV q12 day 2 Zosyn 3.375 gm IV q6h day 3 ID, Dr. Diaz, consulted. Help appreciated. Tylenol 650 mgpo q6h prn for fever NS IVF 125 cc/hr add gentamicin, will follow up genta trough continue gentamicin 80 q 8 blood cultures positive for staph Septic Emboli secondary to IV drug abuse: D-dimer - 656, elevated CT Chest - triangular shaped opacity on right major fissure suggestive of loculated fluid; multiple nodular opacities throughout upper and lower lobes with central lucency; possible septic emboli; atelectasis, limited study to determine PE (please see full report) Serial cardiac enzymes negative Echocardiogram shows no vegetations Lower extremity venous dopplers negative ID consult. Dr. Diaz. recs appreciated Hx of IV Drug Abuse: Psych, Dr. Peres, consulted. Help appreciated. Will defer to psych for methadone Prophylactic Measures: GI: Protonix 40 mg po qd DVT: Lovenox 40 mg sc qd Zofran prn discussed with Dr. Giraldo <Roldan Giraldo - Last Filed: 10/13/16 17:45> Objective - Vital Signs/Intake and Output Vital Signs (last 24 hours): Temp Pulse Resp BP Pulse Ox 98.8 F 71 18 123/83 97 10/13/16 16:32 10/13/16 16:32 10/13/16 16:32 10/13/16 16:32 10/13/16 16:32 Intake and Output: 10/13/16 10/13/16 06:59 18:59 Intake Total 1240 Output Total 700 Balance 540 - Medications Medications: Current Medications Acetaminophen (Tylenol 325mg Tab) 650 mg PO Q6 PRN PRN Reason: Pain, Mild (1-3) Last Admin: 10/13/16 17:26 Dose: 650 mg Al Hydrox/Mg Hydrox/Simethicone (Maalox 30 Ml) 30 ml PO TID PRN PRN Reason: Indigestion / Heartburn Clonidine HCl (Catapres) 0.1 mg PO Q8 PRN PRN Reason: COWS Score More or Equal to 5 Enoxaparin Sodium (Lovenox) 40 mg SC DAILY [facility] Last Admin: 10/13/16 09:07 Dose: 40 mg Sodium Chloride (Sodium Chloride 0.9%) 1,000 mls @ 125 mls/hr IV .Q8H [facility] Last Admin: 10/13/16 14:04 Dose: 125 mls/hr Piperacillin Sod/Tazobactam Sod (Zosyn 3.375 Gm Iv Premix) 3.375 gm in 50 mls @ 100 mls/hr IVPB Q6H [facility] Last Admin: 10/13/16 14:58 Dose: 100 mls/hr Vancomycin HCl 1 gm/ Sodium (Chloride) 250 mls @ 166.7 mls/hr IVPB Q12H [facility] Last Admin: 10/13/16 11:46 Dose: 166.7 mls/hr Gentamicin Sulfate 80 mg/ (Sodium Chloride) 102 mls @ 100 mls/hr IVPB Q8H [facility] Last Admin: 10/13/16 14:03 Dose: 100 mls/hr Loperamide HCl (Imodium) 2 mg PO Q8 PRN PRN Reason: Diarrhea Methadone HCl (Methadone) 20 mg PO DAILY [facility] PRN Reason: Taper Stop: 10/16/16 09:59 Last Admin: 10/13/16 09:07 Dose: 20 mg Ondansetron HCl (Zofran Tab) 4 mg PO Q8 PRN PRN Reason: Nausea/Vomiting Last Admin: 10/13/16 00:13 Dose: 4 mg Pantoprazole Sodium (Protonix Ec Tab) 40 mg PO DAILY [facility] Last Admin: 10/13/16 09:07 Dose: 40 mg Pseudoephedrine HCl (Sudafed Tab) 60 mg PO QID PRN PRN Reason: Nasal/Sinus Congestion Trazodone HCl (Desyrel) 50 mg PO [facility] - Labs Labs: 10/13/16 07:32 10/13/16 07:32 PT 15.4 SECONDS (9.7-12.2) H 10/11/16 13:50 INR 1.4 10/11/16 13:50 APTT 31 SECONDS (21-34) 10/11/16 13:50 Attending/Attestation - Attestation I have personally seen and examined this patient.: Yes I have fully participated in the care of the patient.: Yes I have reviewed all pertinent clinical information, including history, physical exam and plan: Yes Notes (Text): Medical Attending: Patient was seen and examined by me. Agree with the above note by the resident. Family present as well. As before he allowed family to be present when we discussed the case His HIV and RPR and Hep studies are negative. He said he had abdominal pain, it was less, but it was still there. + Diarrhea and also anxiety, difficulty sleeping. Again better now that he is getting methadone. He asked for morphine I was very axel with him and tell him we will not do that. Echo returned and did not show valvuar vegetations. His blood cultures did come back + for staph. Continue IV abx. thank you Roldan Giraldo
--- NOTE | 2016-10-13 14:20 | CP.PCM.CON ---
History of Present Illness - History of Present Illness History of Present Illness: dictated Past Patient History - Infectious Disease Hx of Infectious Diseases: None - Past Social History Smoking Status: Never Smoked - CARDIAC Hx Cardiac Disorders: No - PULMONARY Hx Respiratory Disorders: No - NEUROLOGICAL Hx Neurological Disorder: No - HEENT Hx HEENT Problems: No - RENAL Hx Chronic Kidney Disease: No - ENDOCRINE/METABOLIC Hx Endocrine Disorders: No - HEMATOLOGICAL/ONCOLOGICAL Hx Blood Disorders: No - INTEGUMENTARY Hx Dermatological Problems: No - MUSCULOSKELETAL/RHEUMATOLOGICAL Hx Falls: No - GASTROINTESTINAL Hx Gastrointestinal Disorders: No - GENITOURINARY/GYNECOLOGICAL Hx Genitourinary Disorders: No - PSYCHIATRIC Hx Substance Use: Yes (HEROIN IV) - SURGICAL HISTORY Hx Surgeries: No - ANESTHESIA Hx Anesthesia: No Hx Anesthesia Reactions: No Hx Malignant Hyperthermia: No Has any member of the family had a problem w/ anesthesia?: No Meds Allergies/Adverse Reactions: Allergies Allergy/AdvReac Type Severity Reaction Status Date / Time No Known Allergies Allergy Verified 10/11/16 12:39 - Medications Medications: Current Medications Acetaminophen (Tylenol 325mg Tab) 650 mg PO Q6 PRN PRN Reason: Pain, Mild (1-3) Last Admin: 10/13/16 11:10 Dose: 650 mg Al Hydrox/Mg Hydrox/Simethicone (Maalox 30 Ml) 30 ml PO TID PRN PRN Reason: Indigestion / Heartburn Clonidine HCl (Catapres) 0.1 mg PO Q8 PRN PRN Reason: COWS Score More or Equal to 5 Enoxaparin Sodium (Lovenox) 40 mg SC DAILY [facility] Last Admin: 10/13/16 09:07 Dose: 40 mg Sodium Chloride (Sodium Chloride 0.9%) 1,000 mls @ 125 mls/hr IV .Q8H [facility] Last Admin: 10/13/16 14:04 Dose: 125 mls/hr Piperacillin Sod/Tazobactam Sod (Zosyn 3.375 Gm Iv Premix) 3.375 gm in 50 mls @ 100 mls/hr IVPB Q6H [facility] Last Admin: 10/13/16 08:10 Dose: 100 mls/hr Vancomycin HCl 1 gm/ Sodium (Chloride) 250 mls @ 166.7 mls/hr IVPB Q12H [facility] Last Admin: 10/13/16 11:46 Dose: 166.7 mls/hr Gentamicin Sulfate 80 mg/ (Sodium Chloride) 102 mls @ 100 mls/hr IVPB Q8H [facility] Last Admin: 10/13/16 14:03 Dose: 100 mls/hr Loperamide HCl (Imodium) 2 mg PO Q8 PRN PRN Reason: Diarrhea Methadone HCl (Methadone) 20 mg PO DAILY [facility] PRN Reason: Taper Stop: 10/16/16 09:59 Last Admin: 10/13/16 09:07 Dose: 20 mg Ondansetron HCl (Zofran Tab) 4 mg PO Q8 PRN PRN Reason: Nausea/Vomiting Last Admin: 10/13/16 00:13 Dose: 4 mg Pantoprazole Sodium (Protonix Ec Tab) 40 mg PO DAILY [facility] Last Admin: 10/13/16 09:07 Dose: 40 mg Pseudoephedrine HCl (Sudafed Tab) 60 mg PO QID PRN PRN Reason: Nasal/Sinus Congestion Trazodone HCl (Desyrel) 50 mg PO [facility] Results - Vital Signs Recent Vital Signs: Last Vital Signs Temp 97.7 F 10/13/16 07:15 Pulse 71 10/13/16 08:42 Resp 18 10/13/16 07:15 BP 120/70 10/13/16 07:15 Pulse Ox 96 10/13/16 07:15 - Labs Result Diagrams: 10/13/16 07:32 10/13/16 07:32 Labs: Laboratory Results - last 24 hr 10/12/16 10/12/16 10/12/16 19:44 19:44 19:44 WBC RBC Hgb Hct MCV MCH MCHC RDW Plt Count MPV Neut % (Auto) Lymph % (Auto) [place] % (Auto) Eos % (Auto) Baso % (Auto) Neut # Lymph # [place] # Eos # Baso # Sodium Potassium Chloride Carbon Dioxide Anion Gap BUN Creatinine Est GFR ( Amer) Est GFR (Non-Af Amer) Random Glucose Calcium Phosphorus Magnesium Total Bilirubin AST ALT Alkaline Phosphatase Total Protein Albumin Globulin Albumin/Globulin Ratio Vancomycin Trough RPR Nonreactive Hepatitis A IgM Ab Negative Hep Bs Antigen Negative Hep B Core IgM Ab Negative Hepatitis C Antibody Negative HIV 1&2 Antibody Screen Negative 10/13/16 10/13/16 10/13/16 07:32 07:32 11:24 WBC 9.2 RBC 3.52 L Hgb 9.5 L Hct 29.5 L MCV 83.6 MCH 27.1 MCHC 32.4 L RDW 15.1 H Plt Count 261 MPV 8.2 Neut % (Auto) 76.6 H Lymph % (Auto) 12.0 L [place] % (Auto) 9.6 Eos % (Auto) 1.5 Baso % (Auto) 0.3 Neut # 7.1 H Lymph # 1.1 [place] # 0.9 H Eos # 0.1 Baso # 0.0 Sodium 138 Potassium 3.9 Chloride 104 Carbon Dioxide 26 Anion Gap 12 BUN 7 L Creatinine 0.6 L Est GFR ( Amer) > 60 Est GFR (Non-Af Amer) > 60 Random Glucose 87 Calcium 8.1 L Phosphorus 4.3 Magnesium 2.1 Total Bilirubin 0.5 AST 25 ALT 25 Alkaline Phosphatase 88 Total Protein 6.0 L Albumin 2.8 L Globulin 3.2 Albumin/Globulin Ratio 0.9 L Vancomycin Trough 5.5 RPR Hepatitis A IgM Ab Hep Bs Antigen Hep B Core IgM Ab Hepatitis C Antibody HIV 1&2 Antibody Screen
--- NOTE | 2016-10-14 17:42 | CON ---
DATE: 10/14/2016 REASON FOR CONSULTATION: Staph aureus bacteremia. The [facility] system is down and what is available to me for information is on the medical record as w ell as information relayed to me by the medical team. HISTORY OF PRESENT ILLNESS: The patient is a 26-year-old male who is an active IVDA. He presents be cause of fever, chills and weakness. Blood culture grew Staph aureus. The patient did experience ri ght groin discomfort and at one point reported that was not feeling his left leg. The patient also h as low back pain which he blames on drug withdrawal. The patient denies any history of heart infecti on in the past. SOCIAL HISTORY: The patient is nonsmoker, nondrinker. He is active IVDA. 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 MEDICATIONS: Vancomycin intravenously at 1250 mg q. 12 hours. REVIEW OF SYSTEMS: No nausea or vomiting. No dizziness or syncope. PHYSICAL EXAMINATION: GENERAL: The patient is a young middle-aged male who does not appear to be in acute distress. VITAL SIGNS: Blood pressure 128/85, heart rate 70, temperature 99, respirations 20. HEENT: Pale conjunctivae. CHEST: Clear. CARDIOVASCULAR: S1, S2 regular. No gallop, murmur or rub. ABDOMEN: Soft. EXTREMITIES: No edema. EKG revealed normal sinus rhythm. I did review the echocardiographic study which was unremarkable. There was no evidence of valvular vegetation. ASSESSMENT 1. Staphylococcus aureus bacteremia. Rule out a vertebral abscess. 2. Endocarditis is still a possibility. RECOMMENDATIONS: Case was discussed with the medical team. The patient will undergo head CT scan wi thout contrast as well as CAT scan of the lumbosacral spine. Leonel Katz MD cc: [id number] TT: 10/14/2016 17:42:08 Confirmation # [id number] Dictation # [id number] mn
[2016-10-14] MEDS: Piperacill/Tazo 3.375gm in Dex 3.375 GM/50 ML BAG IVPB SCH (19:50)
--- NOTE | 2016-10-14 20:26 | CP.PCM.PN ---
Subjective - Date & Time of Evaluation Date of Evaluation: 10/14/16 Time of Evaluation: 02:10 - Subjective Subjective: dictated Objective - Vital Signs/Intake and Output Vital Signs (last 24 hours): Temp Pulse Resp BP Pulse Ox 99.2 F 72 20 146/76 97 10/14/16 16:00 10/14/16 16:00 10/14/16 16:00 10/14/16 16:00 10/14/16 16:00 - Medications Medications: Current Medications Acetaminophen (Tylenol 325mg Tab) 650 mg PO Q6 PRN PRN Reason: Pain, Mild (1-3) Last Admin: 10/13/16 17:26 Dose: 650 mg Al Hydrox/Mg Hydrox/Simethicone (Maalox 30 Ml) 30 ml PO TID PRN PRN Reason: Indigestion / Heartburn Clonidine HCl (Catapres) 0.1 mg PO Q8 PRN PRN Reason: COWS Score More or Equal to 5 Enoxaparin Sodium (Lovenox) 40 mg SC DAILY [facility] Last Admin: 10/13/16 09:07 Dose: 40 mg Sodium Chloride (Sodium Chloride 0.9%) 1,000 mls @ 125 mls/hr IV .Q8H [facility] Last Admin: 10/13/16 20:00 Dose: Not Given Piperacillin Sod/Tazobactam Sod (Zosyn 3.375 Gm Iv Premix) 3.375 gm in 50 mls @ 100 mls/hr IVPB Q6H [facility] Last Admin: 10/14/16 19:50 Dose: 100 mls/hr Vancomycin HCl 1.25 gm/ Sodium (Chloride) 250 mls @ 120 mls/hr IVPB Q12H [facility] Gentamicin Sulfate 90 mg/ (Sodium Chloride) 102.25 mls @ 100 mls/hr IVPB Q8H [facility] Loperamide HCl (Imodium) 2 mg PO Q8 PRN PRN Reason: Diarrhea Methadone HCl (Methadone) 10 mg PO DAILY [facility] PRN Reason: Taper Stop: 10/16/16 09:59 Last Admin: 10/13/16 09:07 Dose: 20 mg Ondansetron HCl (Zofran Tab) 4 mg PO Q8 PRN PRN Reason: Nausea/Vomiting Last Admin: 10/13/16 00:13 Dose: 4 mg Pantoprazole Sodium (Protonix Ec Tab) 40 mg PO DAILY [facility] Last Admin: 10/13/16 09:07 Dose: 40 mg Pseudoephedrine HCl (Sudafed Tab) 60 mg PO QID PRN PRN Reason: Nasal/Sinus Congestion Trazodone HCl (Desyrel) 50 mg PO HS [facility] Last Admin: 10/13/16 21:16 Dose: 50 mg - Labs Labs: 10/13/16 07:32 10/13/16 07:32 PT 15.4 SECONDS (9.7-12.2) H 10/11/16 13:50 INR 1.4 10/11/16 13:50 APTT 31 SECONDS (21-34) 10/11/16 13:50
[2016-10-14 21:19] LABS: ALB/GLOB RATIO 0.9 (1.0-2.1); ALKALINE PHOSPHATASE 83 U/L (38-126); ALT/SGPT 21 U/L (21-72); AST/SGOT 33 U/L (17-59); BILIRUBIN,TOTAL 0.6 mg/dL (0.2-1.3); BLOOD UREA NITROGEN 5 mg/dL (9-20); CALCIUM 8.1 mg/dl (8.6-10.4); CARBON DIOXIDE 26 mmol/L (22-30); CHLORIDE 97 mmol/L (98-107); GFR AFRICAN-AMERICAN > 60; GLUCOSE,RANDOM 82 mg/dL (75-110); PHOSPHOROUS 4.3 mg/dL (2.5-4.5); POTASSIUM 3.8 mmol/L (3.6-5.2); SODIUM 132 mmol/L (132-148); TOTAL PROTEIN 6.4 g/dL (6.3-8.3)
--- NOTE | 2016-10-14 21:19 | PN ---
DATE: 10/14/2016 SUBJECTIVE: The nurse called me and she in fact give me a wrong peak and then she corrected it, I we nt to see him, as he had fever. He was awake, alert and denied any aches and pains but looked kind o f sick and he had fever in the afternoon. PHYSICAL EXAMINATION: VITAL SIGNS: No his T-max is 99.2, pulse 72, blood pressure 146/76, respirations are 20. HEENT: Head is atraumatic, normocephalic. NECK: Supple. LUNGS: Clear. No crackles or rales present. HEART: S1, S2 regular. ABDOMEN: Soft, nontender, no guarding, no rigidity present. EXTREMITIES: No edema, clubbing or cyanosis. LABORATORY DATA: His peak trough was 0.7 and gentamicin peak was 2, so we have increased it to 90 q. 8. He is also on vancomycin and the vancomycin trough was 5.5 and the peak was 26.2, hence I have i ncreased the medication. I think his fevers may be related to pulmonary embolism as well as to Staph aureus. He has septic em boli and he continues to be on Zosyn as well as vancomycin has been increased. His blood cultures we re Staph aureus sensitivities are still pending, since the computer was down we could not even ask fo r it. We will find out the sensitivities tomorrow, but for now, will continue these medications and I have increased the doses to make them more appropriate and will need again vancomycin peak and trou gh and gentamicin peak and trough in a few days, but want to see. He will also need a JAY as he is a n IV drug abuser and has septic emboli, Staphylococcus aureus bacteremia and the rule out endocarditi s. Pablo Diaz MD cc: [id number] TT: 10/14/2016 21:18:09 Confirmation # [id number] Dictation # [id number]
[2016-10-14 21:25] LABS: BASO % 0.6 % (0.0-2.0); EOS # 0.1 K/uL (0.0-0.7); HEMATOCRIT 29.8 % (35.0-51.0); LYMPH # 1.2 K/uL (1.0-4.3); LYMPH % 13.7 % (20.0-40.0); MEAN CELL VOLUME 82.9 fL (80.0-94.0); MEAN CORPUSCULAR HEMOGLOBIN 26.8 pg (27.0-31.0); MEAN CORPUSCULAR HGB CONC 32.3 g/dL (33.0-37.0); MEAN PLATELET VOLUME 7.8 fL (7.2-11.7); MONO # 0.8 K/uL (0.0-0.8); MONO % 9.2 % (0.0-10.0); RED CELL DISTRIBUTION WIDTH 14.9 % (11.5-14.5); WHITE BLOOD COUNT 8.6 K/uL (4.8-10.8)
--- NOTE | 2016-10-14 22:14 | CT ---
PROCEDURE: CT HEAD WITHOUT CONTRAST. HISTORY: Septic pulmonary emboli COMPARISON: None available. TECHNIQUE: Axial computed tomography images were obtained through the head/brain without intravenous contrast. Radiation dose: Total exam DLP = 919.82 mGy-cm. This CT exam was performed using one or more of the following dose reduction techniques: Automated exposure control, adjustment of the mA and/or kV according to patient size, and/or use of iterative reconstruction technique. FINDINGS: HEMORRHAGE: No intracranial hemorrhage. BRAIN: No mass effect or edema. The augustin-white matter differentiation appears intact. Please note that MRI with diffusion imaging is more sensitive in the detection of acute ischemic event. VENTRICLES: No hydrocephalus. CALVARIUM: Unremarkable. PARANASAL SINUSES: Unremarkable as visualized. No significant inflammatory changes. MASTOID AIR CELLS: Unremarkable as visualized. No inflammatory changes. OTHER FINDINGS: None. IMPRESSION: No acute intracranial pathology identified.
[2016-10-15 08:42] LABS: BASO % 0.5 % (0.0-2.0); EOS # 0.2 K/uL (0.0-0.7); EOS % 1.7 % (0.0-4.0); HEMATOCRIT 32.2 % (35.0-51.0); LYMPH # 1.2 K/uL (1.0-4.3); LYMPH % 13.5 % (20.0-40.0); MEAN CELL VOLUME 82.9 fL (80.0-94.0); MEAN CORPUSCULAR HEMOGLOBIN 27.4 pg (27.0-31.0); MEAN CORPUSCULAR HGB CONC 33.1 g/dL (33.0-37.0); MEAN PLATELET VOLUME 7.5 fL (7.2-11.7); MONO # 0.7 K/uL (0.0-0.8); MONO % 8.2 % (0.0-10.0); RED CELL DISTRIBUTION WIDTH 15.3 % (11.5-14.5); WHITE BLOOD COUNT 8.8 K/uL (4.8-10.8)
[2016-10-15 09:02] LABS: CHLORIDE 99 mmol/L (98-107); SODIUM 136 mmol/L (132-148)
[2016-10-15 09:04] LABS: GFR AFRICAN-AMERICAN > 60
[2016-10-15 09:05] LABS: ALB/GLOB RATIO 0.8 (1.0-2.1); ALKALINE PHOSPHATASE 91 U/L (38-126); ALT/SGPT 57 U/L (21-72); AST/SGOT 100 U/L (17-59); BILIRUBIN,TOTAL 0.7 mg/dL (0.2-1.3); BLOOD UREA NITROGEN 6 mg/dL (9-20); CARBON DIOXIDE 27 mmol/L (22-30); GLUCOSE,RANDOM 76 mg/dL (75-110); TOTAL PROTEIN 6.8 g/dL (6.3-8.3)
[2016-10-15 09:06] LABS: MAGNESIUM 2.2 mg/dL (1.6-2.3); PHOSPHOROUS 4.1 mg/dL (2.5-4.5)
[2016-10-15] MEDS: Enoxaparin 40 mg Syringe SC SCH (09:30)
[2016-10-15] MEDS: Pantoprazole 40 mg EC Tab PO SCH (09:32)
[2016-10-15] MEDS: Piperacill/Tazo 3.375gm in Dex 3.375 GM/50 ML BAG IVPB SCH ×3 (09:32→20:52)
--- NOTE | 2016-10-15 10:13 | RAD ---
PROCEDURE: Right Femur Radiographs. HISTORY: right leg pain COMPARISON: None. TECHNIQUE: AP and Lateral Radiographs of the right femur. FINDINGS: FEMUR: Normal. No fracture. SOFT TISSUES: Normal. OTHER FINDINGS: None. IMPRESSION: Unremarkable radiographs of the right femur.
--- NOTE | 2016-10-15 11:47 | CP.PCM.PN ---
Subjective - Date & Time of Evaluation Date of Evaluation: 10/15/16 Time of Evaluation: 11:45 - Subjective Subjective: Med progress note. Attending: Dr. Giraldo Pt seen and examined at bedside. No acute distress, still feeling feverish. With some sweating. Walking well, will order lumbar, thoracic mri. Denies cp, sob, vomiting, diarrhea. Objective - Vital Signs/Intake and Output Vital Signs (last 24 hours): Temp Pulse Resp BP Pulse Ox 98.6 F 77 20 136/77 96 10/15/16 07:00 10/15/16 08:23 10/15/16 07:00 10/15/16 07:00 10/15/16 07:00 Intake and Output: 10/15/16 10/15/16 06:59 18:59 Output Total 100 Balance -100 - Medications Medications: Current Medications Acetaminophen (Tylenol 325mg Tab) 650 mg PO Q6 PRN PRN Reason: Pain, Mild (1-3) Last Admin: 10/13/16 17:26 Dose: 650 mg Al Hydrox/Mg Hydrox/Simethicone (Maalox 30 Ml) 30 ml PO TID PRN PRN Reason: Indigestion / Heartburn Last Admin: 10/15/16 09:30 Dose: 30 ml Clonidine HCl (Catapres) 0.1 mg PO Q8 PRN PRN Reason: COWS Score More or Equal to 5 Last Admin: 10/15/16 09:32 Dose: 0.1 mg Enoxaparin Sodium (Lovenox) 40 mg SC DAILY [facility] Last Admin: 10/15/16 09:30 Dose: 40 mg Piperacillin Sod/Tazobactam Sod (Zosyn 3.375 Gm Iv Premix) 3.375 gm in 50 mls @ 100 mls/hr IVPB Q6H [facility] Last Admin: 10/15/16 09:32 Dose: 100 mls/hr Vancomycin HCl 1.25 gm/ Sodium (Chloride) 250 mls @ 120 mls/hr IVPB Q12H [facility] Last Admin: 10/14/16 21:48 Dose: 120 mls/hr Gentamicin Sulfate 90 mg/ (Sodium Chloride) 102.25 mls @ 100 mls/hr IVPB Q8H [facility] Last Admin: 10/15/16 06:23 Dose: 100 mls/hr Loperamide HCl (Imodium) 2 mg PO Q8 PRN PRN Reason: Diarrhea Methadone HCl (Methadone) 5 mg PO DAILY [facility] PRN Reason: Taper Stop: 10/16/16 09:59 Last Admin: 10/15/16 09:31 Dose: 5 mg Ondansetron HCl (Zofran Tab) 4 mg PO Q8 PRN PRN Reason: Nausea/Vomiting Last Admin: 10/13/16 00:13 Dose: 4 mg Pantoprazole Sodium (Protonix Ec Tab) 40 mg PO DAILY [facility] Last Admin: 10/15/16 09:32 Dose: 40 mg Pseudoephedrine HCl (Sudafed Tab) 60 mg PO QID PRN PRN Reason: Nasal/Sinus Congestion Last Admin: 10/15/16 09:31 Dose: 60 mg Trazodone HCl (Desyrel) 50 mg PO HS [facility] Last Admin: 10/14/16 21:52 Dose: 50 mg - Labs Labs: 10/15/16 08:09 10/15/16 08:09 PT 15.4 SECONDS (9.7-12.2) H 10/11/16 13:50 INR 1.4 10/11/16 13:50 APTT 31 SECONDS (21-34) 10/11/16 13:50 - Constitutional Appears: Non-toxic, No Acute Distress - Head Exam Head Exam: ATRAUMATIC, NORMAL INSPECTION, NORMOCEPHALIC - Eye Exam Eye Exam: EOMI - ENT Exam ENT Exam: Mucous Membranes Moist - Neck Exam Neck Exam: Full ROM, Normal Inspection - Respiratory Exam Respiratory Exam: NORMAL BREATHING PATTERN. absent: Respiratory Distress - Cardiovascular Exam Cardiovascular Exam: +S1, +S2 - GI/Abdominal Exam GI & Abdominal Exam: Soft, Normal Bowel Sounds. absent: Tenderness - Extremities Exam Extremities Exam: Full ROM, Normal Inspection - Neurological Exam Neurological Exam: Alert, Awake, Oriented x3 - Psychiatric Exam Psychiatric exam: Normal Affect, Normal Mood - Skin Skin Exam: Dry, Intact, Normal Color, Warm Assessment and Plan - Assessment and Plan (Free Text) Assessment: This is a 26 yo male with past medical hx of heroin abuse presenting with fevers , shaking, chills, abdominal pain Sepsis: Tmax- 100.9, pt has been afebrile overnight WBC - 13.9>> 10.7>> 9.2>> 8.8 HR controlled Blood cultures, urine cultures pending>>> urine culture negative 2 blood cultures positive for staph Vancomycin 1.25 gm IV q12 Zosyn 3.375 gm IV q6h ID, Dr. Diaz, consulted. Help appreciated. Tylenol 650 mgpo q6h prn for fever add gentamicin, will follow up genta trough>>> on genta 90 mg q 8 blood cultures positive for staph at this time, we will hold off on sue and instead get thoracic/lumbar mri Septic Emboli secondary to IV drug abuse: D-dimer - 656, elevated CT Chest - triangular shaped opacity on right major fissure suggestive of loculated fluid; multiple nodular opacities throughout upper and lower lobes with central lucency; possible septic emboli; atelectasis, limited study to determine PE (please see full report) Serial cardiac enzymes negative Echocardiogram shows no vegetations Lower extremity venous dopplers negative ID consult. Dr. Diaz. recs appreciated Hx of IV Drug Abuse: Psych, Dr. Peres, consulted. Help appreciated. Will defer to psych for methadone Prophylactic Measures: GI: Protonix 40 mg po qd DVT: Lovenox 40 mg sc qd Zofran prn discussed with Dr. Giraldo
[2016-10-15 12:28] LABS: BASO % 0.4 % (0.0-2.0); EOS # 0.1 K/uL (0.0-0.7); EOS % 1.2 % (0.0-4.0); HEMATOCRIT 32.1 % (35.0-51.0); LYMPH % 9.4 % (20.0-40.0); MEAN CELL VOLUME 82.7 fL (80.0-94.0); MEAN CORPUSCULAR HEMOGLOBIN 27.1 pg (27.0-31.0); MEAN CORPUSCULAR HGB CONC 32.8 g/dL (33.0-37.0); MEAN PLATELET VOLUME 7.7 fL (7.2-11.7); MONO # 0.9 K/uL (0.0-0.8); PLATELET COUNT 397 K/uL (130-400); RED CELL DISTRIBUTION WIDTH 15.3 % (11.5-14.5); WHITE BLOOD COUNT 10.1 K/uL (4.8-10.8)
[2016-10-15 12:55] LABS: IRON 19 ug/dL (49-181)
[2016-10-15 13:00] LABS: CHLORIDE 97 mmol/L (98-107); POTASSIUM 4.1 mmol/L (3.6-5.2); SODIUM 134 mmol/L (132-148)
[2016-10-15 13:02] LABS: BILIRUBIN,TOTAL 0.6 mg/dL (0.2-1.3); CARBON DIOXIDE 26 mmol/L (22-30); GFR AFRICAN-AMERICAN > 60
[2016-10-15 13:03] LABS: ALB/GLOB RATIO 0.9 (1.0-2.1); ALKALINE PHOSPHATASE 83 U/L (38-126); ALT/SGPT 56 U/L (21-72); AST/SGOT 95 U/L (17-59); BLOOD UREA NITROGEN 7 mg/dL (9-20); CALCIUM 8.5 mg/dl (8.6-10.4); GLUCOSE,RANDOM 74 mg/dL (75-110); MAGNESIUM 2.2 mg/dL (1.6-2.3); PHOSPHOROUS 4.2 mg/dL (2.5-4.5); TOTAL PROTEIN 6.8 g/dL (6.3-8.3)
[2016-10-15 13:08] LABS: EOSINOPHIL 1 % (0-4); NEUTROPHIL 76 % (50-75); TOTAL CELLS COUNTED 100
--- NOTE | 2016-10-15 14:04 | PN ---
DATE: 10/15/2016 The patient denies any pain; however, his answers are angry response for the fact that he has to stay in the hospital the extended time. PHYSICAL EXAMINATION: VITAL SIGNS: Blood pressure 136/76, heart rate 70, temperature 98.6, respirations 20. HEENT: Normocephalic. NECK: No JVD. CHEST: Clear. HEART: S1, S2 regular. EXTREMITIES: No edema. LABORATORIES: Hemoglobin and hematocrit 10.5 and 32.7, white count and platelet count are within nor mal limits. Today's BUN and creatinine are 7 and 0.7. Liver profile is negative. HIV antibody scre en and RPR are negative. Urine drug screen is positive for cocaine, barbiturates, and opiates. Lumb ar spine MRI was performed instead of CAT scan of the spine; however, the report is still pending. R ight femur x-ray is unremarkable. ASSESSMENT: 1. Staphylococcus aureus bacteremia. 2. Rule out bacterial endocarditis. 3. Rule out other septic focus such as spinal abscess. RECOMMENDATIONS: Continue current IV gentamicin and IV vancomycin. The patient is talking about sig rony himself out no matter what ____ the hospital stay. He refused to go for MRI of the thoracic spi ne. Leonel Katz MD cc: [id number] TT: 10/15/2016 14:04:04 Confirmation # [id number] Dictation # [id number] tn
--- NOTE | 2016-10-15 15:33 | MRI ---
PROCEDURE: MRI lumbar spine dated 10/15/2016 COMPARISON: No prior study available for comparison TECHNIQUE: Multi-echo echo ho multiplanar sequences were performed through the lumbar spine without the use of intravenous contrast. . Note the patient refused intravenous contrast material. FINDINGS: PI current study reveals no acute compression fractures nor retropulsed fragments. The vertebral bodies exhibit normal stature. There is a small chronic appearing Schmorl's node along the superior L2 endplate. . . Minimal straightening of the normal lumbar lordosis however vertebral bodies otherwise exhibit normal alignment. Facets normally aligned. The endplates appear intact without destructive change. No evidence of abnormal signal seen within the disc spaces to suggest underlying osteomyelitis/ discitis. At the L4 L5 level, there is disc desiccation with small central and bilateral focal disc herniation which extends inferiorly in a subligamentous location over short distance dorsal to the superior corner of the L5 segment. This results in mild focal compression of the ventral surface of the thecal sac reaching the nearly exiting intrathecal L5 nerve roots. Central canal is slightly narrowed. Facets are mild to moderately hypertrophic. Exit foramina appear adequate. At the L3-L4 level, there is mild age related disc desiccation. Disc space height maintained. No disc herniation or significant disc bulge. The overall central canal appears adequate. Facets slightly hypertrophic. Exit foramina are also adequate. At the L2-L3 level, there is mild age related disc desiccation and minor posterior disc space narrowing. No disc herniation or significant disc bulge. Facets a prominent. Central canal and exit foramina are adequate. The remaining levels exhibit adequate disc height and hydration. There are no disc herniations nor significant disc bulges. . Impression: No evidence of acute compression fractures nor chronic compression fractures nor retropulsed fragments. . There are no destructive changes of the disc spaces or endplates seen at this time to suggest discitis osteomyelitis. Small chronic appearing Schmorl's node superior L2 segment. Small central and bilateral disc herniation L4 L5 level as described.
[2016-10-16] MEDS: Piperacill/Tazo 3.375gm in Dex 3.375 GM/50 ML BAG IVPB SCH ×2 (02:38→09:01)
[2016-10-16 07:22] LABS: BASO # 0.1 K/uL (0.0-0.2); BASO % 0.8 % (0.0-2.0); EOS # 0.2 K/uL (0.0-0.7); EOS % 2.6 % (0.0-4.0); LYMPH # 1.1 K/uL (1.0-4.3); LYMPH % 14.1 % (20.0-40.0); MEAN CELL VOLUME 82.7 fL (80.0-94.0); MEAN CORPUSCULAR HEMOGLOBIN 27.1 pg (27.0-31.0); MEAN CORPUSCULAR HGB CONC 32.8 g/dL (33.0-37.0); MEAN PLATELET VOLUME 7.5 fL (7.2-11.7); MONO # 0.7 K/uL (0.0-0.8); MONO % 9.1 % (0.0-10.0); RED CELL DISTRIBUTION WIDTH 15.5 % (11.5-14.5); WHITE BLOOD COUNT 8.1 K/uL (4.8-10.8)
[2016-10-16 07:44] LABS: CHLORIDE 97 mmol/L (98-107); SODIUM 134 mmol/L (132-148)
[2016-10-16 07:46] LABS: BILIRUBIN,TOTAL 0.6 mg/dL (0.2-1.3); GFR AFRICAN-AMERICAN > 60
[2016-10-16 07:47] LABS: ALB/GLOB RATIO 0.9 (1.0-2.1); ALKALINE PHOSPHATASE 78 U/L (38-126); ALT/SGPT 45 U/L (21-72); AST/SGOT 62 U/L (17-59); BLOOD UREA NITROGEN 7 mg/dL (9-20); CARBON DIOXIDE 26 mmol/L (22-30); GLUCOSE,RANDOM 106 mg/dL (75-110); PHOSPHOROUS 4.1 mg/dL (2.5-4.5)
[2016-10-16 07:48] LABS: MAGNESIUM 2.2 mg/dL (1.6-2.3)
[2016-10-16 08:30] VITALS: BP 102/57; PULSE 67; RESP 17; TEMP 97.8; O2SAT 96
[2016-10-16] MEDS: Pantoprazole 40 mg EC Tab PO SCH (09:01)
[2016-10-16] MEDS: Enoxaparin 40 mg Syringe SC SCH (09:02)
--- NOTE | 2016-10-16 09:25 | CP.PCM.DIS ---
Provider - Provider Date of Admission: 10/11/16 18:21 Attending physician: Roldan Giraldo DO Consults: Cardiology ~ Dr Jay ID ~ Joe Time Spent in preparation of Discharge (in minutes): 30 Hospital Course - Lab Results Lab Results: Micro Results 10/14/16 13:26 Blood Blood Culture - Preliminary NO GROWTH AFTER 24 HOURS Most Recent Lab Values WBC 8.1 K/uL (4.8-10.8) 10/16/16 07:09 RBC 3.99 Mil/uL (4.40-5.90) L 10/16/16 07:09 Hgb 10.8 g/dL (12.0-18.0) L 10/16/16 07:09 Hct 33.0 % (35.0-51.0) L 10/16/16 07:09 MCV 82.7 fL (80.0-94.0) 10/16/16 07:09 MCH 27.1 pg (27.0-31.0) 10/16/16 07:09 MCHC 32.8 g/dL (33.0-37.0) L 10/16/16 07:09 RDW 15.5 % (11.5-14.5) H 10/16/16 07:09 Plt Count 375 K/uL (130-400) 10/16/16 07:09 MPV 7.5 fL (7.2-11.7) 10/16/16 07:09 Neut % (Auto) 73.4 % (50.0-75.0) 10/16/16 07:09 Lymph % (Auto) 14.1 % (20.0-40.0) L 10/16/16 07:09 Rains % (Auto) 9.1 % (0.0-10.0) 10/16/16 07:09 Eos % (Auto) 2.6 % (0.0-4.0) 10/16/16 07:09 Baso % (Auto) 0.8 % (0.0-2.0) 10/16/16 07:09 Neut # 6.0 K/uL (1.8-7.0) 10/16/16 07:09 Lymph # 1.1 K/uL (1.0-4.3) 10/16/16 07:09 Rains # 0.7 K/uL (0.0-0.8) 10/16/16 07:09 Eos # 0.2 K/uL (0.0-0.7) 10/16/16 07:09 Baso # 0.1 K/uL (0.0-0.2) 10/16/16 07:09 Neutrophils % (Manual) 76 % (50-75) H 10/15/16 12:00 Band Neutrophils % 1 % (0-2) 10/15/16 12:00 Lymphocytes % (Manual) 10 % (20-40) L 10/15/16 12:00 Monocytes % (Manual) 12 % (0-10) H 10/15/16 12:00 Eosinophils % (Manual) 1 % (0-4) 10/15/16 12:00 Platelet Estimate Normal (NORMAL) 10/15/16 12:00 Hypochromasia (manual) Slight 10/15/16 12:00 Poikilocytosis (manual Slight 10/15/16 12:00 Anisocytosis (manual) Slight 10/15/16 12:00 Microcytosis (manual) Slight 10/15/16 12:00 Macrocytosis (manual) Slight 10/15/16 12:00 Target Cells Slight 10/15/16 12:00 Tear Drop Cells Slight 10/11/16 13:50 [place] Cells Slight 10/12/16 04:00 PT 15.4 SECONDS (9.7-12.2) H 10/11/16 13:50 INR 1.4 10/11/16 13:50 APTT 31 SECONDS (21-34) 10/11/16 13:50 D-Dimer, Quantitative 656 ng/mlDDU (0-243) H 10/11/16 13:50 Sodium 134 mmol/L (132-148) 10/16/16 07:09 Potassium 4.0 mmol/L (3.6-5.2) 10/16/16 07:09 Chloride 97 mmol/L (98-107) L 10/16/16 07:09 Carbon Dioxide 26 mmol/L (22-30) 10/16/16 07:09 Anion Gap 15 (10-20) 10/16/16 07:09 BUN 7 mg/dL (9-20) L 10/16/16 07:09 Creatinine 0.8 MG/DL (0.8-1.5) 10/16/16 07:09 Est GFR ( Amer) > 60 10/16/16 07:09 Est GFR (Non-Af Amer) > 60 10/16/16 07:09 Random Glucose 106 mg/dL (75-110) 10/16/16 07:09 Calcium 9.0 mg/dl (8.6-10.4) 10/16/16 07:09 Phosphorus 4.1 mg/dL (2.5-4.5) 10/16/16 07:09 Magnesium 2.2 mg/dL (1.6-2.3) 10/16/16 07:09 Iron 19 ug/dL (49-181) L 10/15/16 12:00 TIBC 200 ug/dL (250-450) L 10/15/16 12:00 % Saturation 10 (20-55) L 10/15/16 12:00 Transferrin 122.86 mg/dL (206-381) L 10/15/16 12:00 Ferritin 785.0 ng/mL 10/15/16 12:00 Total Bilirubin 0.6 mg/dL (0.2-1.3) 10/16/16 07:09 AST 62 U/L (17-59) H D 10/16/16 07:09 ALT 45 U/L (21-72) 10/16/16 07:09 Alkaline Phosphatase 78 U/L (38-126) 10/16/16 07:09 Total Creatine Kinase 47 U/L (55-170) L 10/12/16 11:38 CK-MB (Mass) < 0.22 ng/mL (0.0-3.38) 10/12/16 11:38 Troponin I, Quant < 0.0120 ng/mL (0.00-0.120) 10/12/16 11:38 Total Protein 7.0 g/dL (6.3-8.3) 10/16/16 07:09 Albumin 3.3 g/dL (3.5-5.0) L 10/16/16 07:09 Globulin 3.7 gm/dL (2.2-3.9) 10/16/16 07:09 Albumin/Globulin Ratio 0.9 (1.0-2.1) L 10/16/16 07:09 Lipase 21 U/L (23-300) L 10/11/16 13:50 Procalcitonin 2.44 NG/ML (0.19-0.49) H 10/12/16 11:38 Urine Color Yellow (YELLOW) 10/11/16 15:07 Urine Clarity Clear (Clear) 10/11/16 15:07 Urine pH 7.0 (5.0-8.0) 10/11/16 15:07 Ur Specific [place] 1.019 (1.003-1.030) 10/11/16 15:07 Urine Protein 1+ mg/dL (NEGATIVE) H 10/11/16 15:07 Urine Glucose (UA) Normal mg/dL (Normal) 10/11/16 15:07 Urine Ketones Negative mg/dL (NEGATIVE) 10/11/16 15:07 Urine Blood 1+ (NEGATIVE) H 10/11/16 15:07 Urine Nitrate Negative (NEGATIVE) 10/11/16 15:07 Urine Bilirubin Negative (NEGATIVE) 10/11/16 15:07 Urine Urobilinogen 4.0 mg/dL (0.2-1.0) 10/11/16 15:07 Ur Leukocyte Esterase Neg [place]/uL (Negative) 10/11/16 15:07 Urine WBC (Auto) 8 /hpf (0-5) H 10/11/16 15:07 Urine RBC (Auto) 11 /hpf (0-3) H 10/11/16 15:07 Gentamicin Peak 2.0 ug/mL (5.0-8.0) L 10/13/16 17:44 Gentamicin Trough 0.7 ug/mL (0.0-0.9) 10/13/16 13:54 Vancomycin Peak 12.2 ug/mL (30.0-40.0) L 10/15/16 18:19 Vancomycin Trough 7.5 ug/mL (5.0-10.0) 10/15/16 11:53 Urine Opiates Screen Positive (NEGATIVE) 10/11/16 15:07 Urine Methadone Screen Negative (NEGATIVE) 10/11/16 15:07 Ur Barbiturates Screen Positive (NEGATIVE) 10/11/16 15:07 Ur Phencyclidine Scrn Negative (NEGATIVE) 10/11/16 15:07 Ur Amphetamines Screen Negative (NEGATIVE) 10/11/16 15:07 U Benzodiazepines Scrn Negative (NEGATIVE) 10/11/16 15:07 U Oth Cocaine Metabols Positive (NEGATIVE) 10/11/16 15:07 U Cannabinoids Screen Negative (NEGATIVE) 10/11/16 15:07 RPR Nonreactive (NONREACTIVE) 10/12/16 19:44 Hepatitis A IgM Ab Negative (NEGATIVE) 10/12/16 19:44 Hep Bs Antigen Negative (NEGATIVE) 10/12/16 19:44 Hep B Core IgM Ab Negative (NEGATIVE) 10/12/16 19:44 Hepatitis C Antibody Negative (NEGATIVE) 10/12/16 19:44 HIV 1&2 Antibody Screen Negative (NEGATIVE) 10/12/16 19:44 - Hospital Course Hospital Course: This is a 26 year old male who was admitted with SOB and MCGUIRE and on CT scan showed there were several area of what appeared to be septic emboli on the lung pal[place]. He had a fever and elevated WBC count. His UDS was positive and he reported IVDA. Family was present as well He completed an 2d echo and this did not suggest vavluar abnormalities - however I pointed out to the patient this did not entirely rule out endocarditis , he did not want CT of the thoracic or lumbar MRI. He was + blood cultures staph aureus infection and was on Vancomycin, Zosyn and Gentamicin. He was also seen by psychiatry as well and was methadone for heroin withdrawl. By 10/16 he was feeling better and wanted to leave AMA - I came, saw and examined and tried to talk to him but he wanted to leave, So he is going AMA. Discharge Exam - Head Exam Head Exam: ATRAUMATIC, NORMAL INSPECTION, NORMOCEPHALIC Discharge Plan - Follow Up Plan Condition: FAIR Disposition: AGAINST MEDICAL ADVICE Patient education suggested?: Yes
== END 2016-10-16 14:23 | disposition left against medical advice (07) | DRG 423 ==
LOC: C.ER 12:32 → C.9E 18:21 → C.6T 19:47
PROVIDERS: ADMIT Hospitalist; ATTEND Hospitalist
PROC: HZ81ZZZ Medication Management for Substance Abuse Treatment, Methadone Maintenance (ICD-10-PCS; principal; 2016-10-11)
DX: R78.81 Bacteremia (principal); I76 Septic arterial embolism; F11.23 Opioid dependence with withdrawal; F17.210 Nicotine dependence, cigarettes, uncomplicated; B95.61 Methicillin susceptible Staphylococcus aureus infection as the cause of diseases classified elsewhere